=== PATIENT | female | born 1980 | race Hispanic/Latino ===

== ENCOUNTER 2021-06-15 20:41 | Emergency (ER) | payer BC, MEDICAID, OTHER ==
[~2021-06-15] VITALS: Ht 170.2 cm; Wt 117.9 kg
[~2021-06-15 20:41] MED LIST: ACET1TAB12 PO; IBUP-1493 PO; PREN1TAB89 PO
[2021-06-15 21:22] LABS: BASOPHILS % (AUTO) 0.7 % (0.0-5.0); EOSINOPHILS % (AUTO) 3.7 % (0.0-8.0); HEMATOCRIT 34.9 % (36-48); LYMPHOCYTES % (AUTO) 30.2 % (21.0-51.0); MEAN CORPUSCULAR HEMOGLOBIN 29.2 pg (27.0-33.0); MEAN CORPUSCULAR VOLUME 88.6 fL (79-99); MONOCYTES % (AUTO) 6.2 % (3.0-13.0); NEUTROPHILS % (AUTO) 58.9 % (40.0-77.0); PLATELET COUNT (AUTO) 303 K/uL (130-400); RED BLOOD CELL COUNT(AUTO) 3.94 MIL/uL (4.00-5.50); RED CELL DISTRIBUTION WIDTH 13.5 % (11.0-15.5); WHITE BLOOD COUNT (AUTO) 9.2 K/uL (4.8-10.8)
[2021-06-15] MEDS ORDERED: ONDANSETRON 4MG INJ IVP ONE (21:30)
[2021-06-15] MEDS ORDERED: MORPHINE 4 MG SYG IVP ONE (21:30)
[2021-06-15 21:34] LABS: CREATININE 1.1 mg/dL (0.5-1.5); POTASSIUM 3.6 mmol/L (3.5-5.1)
[2021-06-15 21:38] LABS: ALBUMIN 3.4 g/dL (3.5-5.0); BILIRUBIN,TOTAL 0.2 mg/dL (0.2-1.0); MAGNESIUM 1.9 mg/dL (1.80-2.40)
[2021-06-15] MEDS ORDERED: ACETAMINOPHEN 500 MG TABLET ONE (22:49)
[2021-06-15] MEDS ORDERED: ACETAMINOPHEN 500 MG TABLET PO ONE (23:00)
[2021-06-15] MEDS ORDERED: FENTANYL 50 MCG/HR PATCH TD ONE (23:00)
[2021-06-15 23:54] VITALS: BP 112/57
== END 2021-06-15 23:55 | disposition home or self-care (01) ==
LOC: EDH 20:41
DX: F41.9 Anxiety disorder, unspecified (principal); R00.0 Tachycardia, unspecified; K08.89 Other specified disorders of teeth and supporting structures; Z79.899 Other long term (current) drug therapy
CPT/HCPCS: 36415; 71045; 80053; 82550; 83735; 84484; 85025; 93005 ×2; 96374; 99284; J2270; J2405